=== PATIENT | female | born 1950 | race Caucasian/White ===

== ENCOUNTER 2020-01-31 21:44 | Emergency (ER) | payer OTHER ==
[~2020-01-31] VITALS: Ht 165.1 cm; Wt 74.8 kg
[2020-01-31 21:53] VITALS: BP 85/41
[2020-01-31 22:29] LABS: ABSOLUTE NEUTROPHILS 5.4 thou/uL (1.4-8.2); BASOPHILS 0.4 % (0.0-2.0); EOSINOPHILS 0.2 % (0.0-3.0); HEMATOCRIT 37.6 % (37.0-47.0); HEMOGLOBIN 12.2 gm/dL (12.0-15.0); LYMPHOCYTES 10.7 % (24.0-44.0); MCH 29.1 pg (26.0-34.0); MCHC 32.6 g/dL (28.0-37.0); MCV 89.3 fL (80.0-100.0); MONOCYTES 4.9 % (1.0-8.0); PLATELET COUNT 187 thou/uL (150-400); POLYS 83.8 % (36.0-66.0); RDW 13.7 % (10.5-14.5); WBC 6.4 thou/uL (4.0-11.0)
[2020-01-31] MEDS ORDERED: ACTOS 30 MG TAB30 MG PO (22:32)
[2020-01-31] MEDS ORDERED: GLIMEPIRIDE4 MG PO (22:32)
[2020-01-31] MEDS ORDERED: JANUVIA 50 MG T50 M1 PO (22:32)
[2020-01-31] MEDS ORDERED: LISINOPRIL20 MG PO (22:33)
[2020-01-31] MEDS ORDERED: LISINOPRIL-HCT1 EAC2 PO (22:33)
[2020-01-31] MEDS ORDERED: ISOSORBIDE MONO30 M1 PO (22:34)
[2020-01-31] MEDS ORDERED: SIMVASTATIN80 MG PO (22:34)
[2020-01-31] MEDS ORDERED: TOPROL XL25 MG PO (22:34)
[2020-01-31] MEDS ORDERED: TRAVATAN Z2.5 ML OPHTHALMIC (22:35)
[2020-01-31] MEDS ORDERED: ZETIA10 MG PO (22:35)
[2020-01-31 22:50] LABS: ANION GAP 10 mmol/L (7-16); BUN 35 mg/dL (7-18); CALCIUM 9.3 mg/dL (8.5-10.1); CHLORIDE 104 mmol/L (98-107); CO2 24 mmol/L (21-32); GLUCOSE 233 mg/dL (74-106); POTASSIUM 4.4 mmol/L (3.5-5.1); SODIUM 138 mmol/L (136-145)
[2020-01-31 22:59] LABS: TROPONIN-I <0.06 ng/mL (<0.06)
[2020-02-01 00:40] LABS: URINE BILIRUBIN 1+ (Negative); URINE BLOOD NEGATIVE (Negative); URINE CLARITY SL CLOUDY; URINE COLOR YELLOW; URINE GLUCOSE-RANDOM* NEGATIVE (Negative); URINE KETONES TRACE (Negative); URINE LEUKOCYTES-REFLEX NEGATIVE (Negative); URINE NITRITE-REFLEX NEGATIVE (Negative); URINE PROTEIN (DIPSTICK) 2+ (Negative); URINE SPECIFIC GRAVITY >= 1.030 (1.005-1.035); URINE UROBILINOGEN 0.2 E.U./dl (0.2-1.0)
[2020-02-01 00:47] LABS: BACTERIA-REFLEX 1-9 Few /HPF (None Seen); MUCUS >6 Heavy strn/LPF (None Seen); SQUAMOUS 0-3 Few /LPF (0-3); URINE RBC 0-2 Rare /HPF (0-2); URINE WBC-REFLEX 0-5 Rare /HPF (0-5)
[2020-02-01 00:48] LABS: CELLULAR CASTS 0-3 Few /LPF (None Seen); HYALINE CASTS >10 Many /LPF (None Seen)
[2020-02-01 20:00] VITALS: BP 161/58
[2020-02-02 00:44] VITALS: BP 136/54
[2020-02-02 04:30] VITALS: BP 118/48
[2020-02-02 08:29] LABS: HEMATOCRIT 37.7 % (37.0-47.0); MCH 28.6 pg (26.0-34.0); MCHC 31.8 g/dL (28.0-37.0); RBC 4.19 mil/uL (4.20-5.00); RDW 13.9 % (10.5-14.5); WBC 7.7 thou/uL (4.0-11.0)
[2020-02-02 08:44] LABS: CALCIUM 8.9 mg/dL (8.5-10.1); CREATININE 1.9 mg/dL (0.6-1.0); MAGNESIUM 1.8 mg/dL (1.8-2.4); POTASSIUM 4.8 mmol/L (3.5-5.1)
[2020-02-02] MEDS ORDERED: PREDNISONE 20 M20 M1 PO (12:04)
--- NOTE | 2020-02-02 12:07 | HC ---
[facility] [place] [address] CONSULTATION Name: OSCAR DAVIS Room #: 170-6 ADM IN M.R.#: [id number] Admission: 02/01/20 Attend Phys: Arden Clarke MD Discharge: Date of : 46 Report #: [id number] THIS REPORT FOR: cc: Kush Chandra,James Morales MD ~ DATE OF SERVICE: 02/01/2020 INFECTIOUS DISEASE CONSULTATION ATTENDING PHYSICIAN: Dr. Weathers. REASON FOR EVALUATION: COVID-19 infection. HISTORY OF PRESENT ILLNESS: Chart reviewed, patient examined. 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 She did fall, was found down ____ a while later. Denied any antecedent issues. She notes sometimes this happens not to this severity with acute blood sugar drop. Due to concerns about possible significant issue, she was brought to the Emergency Room. CT of the head was otherwise unremarkable. Procalcitonin less than 0.07. COVID antigen was positive. Chest x-ray showed no evidence of any acute process. Right now, she feels somewhat weak. Denies significant pulmonary-related complaints. Appetite has been satisfactory. ALLERGIES: INCLUDE METFORMIN, ATORVASTATIN, ROSUVASTATIN, VICTOZA. CURRENT MEDICATIONS: Include famotidine, ascorbic acid, methylprednisolone, zinc, guaifenesin, acetaminophen. PAST MEDICAL HISTORY: Includes diabetes mellitus, hypertension, obstructive sleep apnea; has known coronary artery disease. SOCIAL HISTORY: No ethanol, tobacco or illicit drug use. FAMILY HISTORY: Noncontributory. REVIEW OF SYSTEMS: Otherwise unremarkable. PHYSICAL EXAMINATION: GENERAL: She is alert, cooperative, appropriate, in mild distress. VITAL SIGNS: Temperature 98, pulse 48, respirations 14, blood pressure 110/45, saturation 95%. [facility] [address] [place] [address] CONSULTATION Name: OSCAR DAVIS Room #: [facility] IN [facility].#: [id number] Admission: 02/01/20 Attend Phys: Arden Clarke MD Discharge: Date of : 46 Report #: [id number] SKIN: Warm, dry, no rashes. HEENT: Normocephalic. Extraocular muscles intact. Does have a contused area over the bridge of her nose. She is maintained on ambient air. NECK: Supple. LUNGS: Otherwise clear breath sounds. HEART: Bradycardic. I do not appreciate a murmur. ABDOMEN: Soft, nontender, nondistended. EXTREMITIES: No cyanosis. GENITOURINARY AND RECTAL: Deferred. LABORATORY DATA: Sed rate of 13. Ferritin 151. Urinalysis, otherwise unremarkable, 0-5 white cells. Electrolytes: Sodium 138, potassium 4.4, chloride 104, bicarbonate is 24, anion gap of 10, BUN and creatinine 35 and 2.0. Estimated GFR of 25. CBC: White count 6.4, H and H 12.2 and 37.6, platelets of 187. ASSESSMENT: COVID-19 positive antigen. The patient really has minimal respiratory symptoms, although did have a syncopal episode. Agree with initiating corticosteroids, I do not see any contraindications, as well as vitamins. We will add ivermectin in case this is a syncopal event, tend to benefits earlier on in the course of the disease. We will follow. <ELECTRONICALLY SIGNED> By: James Bernstein MD 02/02/20 1207 [id number] 1220 James Bernstein MD /nt
--- NOTE | 2020-02-02 12:17 | NUR ---
SPOKE WITH PATIENT REGARDING PLAN OF CARE. PT AGRREABLE TO DISCHARGE PER HER CONVERSATION WITH HOSPITALIST EARLIER. NOTIFIED PROVIDER THAT PT DAUGHTER VOICED CONCERNS REGARDING PLAN OF CARE. PROVIDER ATTEMPTED TO CALL DAUGHTER, REPORTS HE RECEIVED NO ANSWER & LEFT MESSAGE. UPDATED PT REGARDING ATTEMPTED COMMUNICATION. PT DENIES CONCERNS ABOUT PLAN OF CARE OR DISCHARGE. PT REPORTS SHE IS SATISFIED WITH CARE.
[2020-02-02 13:36] VITALS: BP 118/48
[2020-02-02 13:57] VITALS: BP 112/84
--- NOTE | 2020-02-03 06:45 | NUR ---
PATIENT D/C PRIOR TO OT EVAL INITIATED
--- NOTE | 2020-02-07 07:55 | EKG ---
[address] [address] ELECTROCARDIOGRAM REPORT Name: SUSANOSCAR Room #: DEP Michael#: [id number] Admission: 01/31/20 Attend Phys: Discharge: 02/02/20 Date of : 46 Report #: [id number] 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
== END 2020-02-02 13:55 | disposition home or self-care (01) ==
LOC: ER 21:44 → EROBS 02-01 00:45 → ER 02-01 00:45 → EROBS 02-02 13:55
PROVIDERS: Emergency Medicine; Nurse Practitioner Family
DX: U07.1 COVID-19 (principal); I95.9 Hypotension, unspecified; N17.9 Acute kidney failure, unspecified; E11.65 Type 2 diabetes mellitus with hyperglycemia; R11.2 Nausea with vomiting, unspecified; I10 Essential (primary) hypertension; E66.9 Obesity, unspecified; Z88.8 Allergy status to other drugs, medicaments and biological substances; Z79.899 Other long term (current) drug therapy; Z68.27 Body mass index [BMI] 27.0-27.9, adult; Z79.01 Long term (current) use of anticoagulants